=== PATIENT | male | born 1990 | race Caucasian/White ===

== ENCOUNTER 2025-01-20 06:20 | Observation (INO) | payer OTHER ==
[2025-01-20] VITALS (13 sets, daily range): BP systolic 133–155; BP diastolic 80–99
[~2025-01-20] VITALS: Ht 167.6 cm; Wt 81.7 kg
[2025-01-20] MEDS ORDERED: Ondansetron HCl 2 MG / ML 2ML Vial IV ONE ×2 (06:35→06:50)
[2025-01-20 06:41] LABS: BASOPHILS ABSOLUTE AUTO 0.12 K/mm3 (0.00-0.23); BASOPHILS PERCENT AUTO 1 % (0-2); EOSINOPHILS ABSOLUTE AUTO 0.12 K/mm3 (0.00-0.68); EOSINOPHILS PERCENT AUTO 1 % (0-6); Hematocrit 44.1 % (37.0-53.0); Hemoglobin 15.2 g/dL (13.5-17.5); IMMATURE GRAN ABSOLUTE AUTO 0.04 K/mm3 (0.00-0.10); IMMATURE GRAN PERCENT AUTO 0 % (0-1); LYMPHOCYTES ABSOLUTE AUTO 2.57 K/mm3 (0.84-5.20); LYMPHOCYTES PERCENT AUTO 19 % (21-46); MONOCYTES ABSOLUTE AUTO 0.82 K/mm3 (0.16-1.47); MONOCYTES PERCENT AUTO 6 % (4-13); Mean Corpuscular HGB Conc 34.5 g/dL (31.5-36.5); Mean Corpuscular Volume 97 fL (80-100); NEUTROPHILS ABSOLUTE AUTO 9.84 K/mm3 (1.96-9.15); NEUTROPHILS PERCENT AUTO 73 % (41-73); NRBC ABSOLUTE 0.00 K/mm3 (0.00-0.02); NRBC Auto 0.0 /100 WBC (0.0-0.2); Platelet Count 327 K/mm3 (150-400); RDW Coefficient Variation 13.1 % (11.7-14.2); RDW Standard Deviation 47.2 fL (35.1-46.3)
[2025-01-20] MEDS ORDERED: Morphine Sulfate 4 MG/1 ML Injection IV ONE ×2 (06:50→08:05)
[2025-01-20 06:57] LABS: Alanine Aminotransfer (ALT/SGP 50.0 U/L (12-78); Albumin, Blood 3.8 g/dL (3.4-5.0); Albumin/Globulin Ratio 1.1 (0.8-1.8); Anion Gap 10.0 mmol/L (3-11); Aspartate Aminotrans (AST/SGOT 23.0 U/L (12-37); Bilirubin, Total 0.3 mg/dL (0.1-1.0); Blood Urea Nitrogen 15.0 mg/dL (8-24); CO2, Blood 24.0 mmol/L (21-32); Calcium, Blood 8.9 mg/dL (8.5-10.1); Chloride, Blood 106.0 mmol/L (98-108); Creatinine, Blood 0.98 mg/dL (0.60-1.20); Globulin, Blood 3.5 g/dL (2.2-4.0); Glucose, Blood 180.0 mg/dL (70-99); Potassium, Blood 3.8 mmol/L (3.5-5.5); Sodium, Blood 136.0 mmol/L (136-145); Total Protein, Blood 7.3 g/dL (6.4-8.2)
[2025-01-20] MEDS ORDERED: Prochlorperazine Edisylate 10 mg Vial IV ONE (08:05)
[2025-01-20] MEDS ORDERED: Ampicillin Sod/Sulbactam Sod 3 GM in NS 100 ML IV SCH ×2 (10:15→10:30)
[2025-01-20] MEDS ORDERED: FLU VACC TS2025-26(6MOS UP)/PF 45 MCG/0.5 ML SYRINGE IM SCH (10:15)
[2025-01-20] MEDS ORDERED: Bupivacaine 0.5% HCl 5 MG/ML 30MLVIAL ONE (10:37)
[2025-01-20] MEDS ORDERED: HYDROmorphone HCl/Pf 1MG SYR IV PRN (10:40)
[2025-01-20] MEDS ORDERED: FentaNYL Citrate 50 MCG/ML 2 ML Injection IV PRN ×3 (10:40→10:45)
[2025-01-20] MEDS ORDERED: Ondansetron HCl 2 MG / ML 2ML Vial IV PRN (10:40)
[2025-01-20] MEDS ORDERED: Metoclopramide HCl 5MG / ML 2ML Vial IV PRN (10:40)
[2025-01-20] MEDS ORDERED: Midazolam HCl 1MG / ML 2ML Vial IV PRN (10:40)
--- NOTE | 2025-01-20 10:47 | NUR ---
PT BROUGHT TO [facility]IA [facility] FROM ER FOR LAP. DIMITRY. Pre-Op teaching done. Pt verbalizes understanding. Patient confirms NPO status and agrees with scheduled surgery. History, Chart, Medications and Allergies reviewed before start of procedure.
[2025-01-20] MEDS ORDERED: FentaNYL Citrate 50 MCG/ML 2 ML Injection ONE (11:02)
[2025-01-20] MEDS ORDERED: Sugammadex Sodium 200 MG/2ML SDV (100 MG/ML) ONE (11:02)
[2025-01-20] MEDS ORDERED: Ondansetron HCl 2 MG / ML 2ML Vial ONE (11:02)
[2025-01-20] MEDS ORDERED: Rocuronium Bromide 10 MG/ML 5ML Injection IV ONE ×2 (11:02→11:27)
[2025-01-20] MEDS ORDERED: Dexamethasone Sod Phos 10 MG/ML 1ML VIAL ONE (11:02)
[2025-01-20] MEDS ORDERED: Ketorolac Tromethamine 30mg Vial ONE (11:03)
[2025-01-20] MEDS ORDERED: HYDROmorphone HCl/Pf 1MG SYR ONE (11:10)
[2025-01-20] MEDS ORDERED: HYDROcodone 5-APAP 325 TAB PO PRN (14:20)
[2025-01-20] MEDS ORDERED: HYDR1TAB94 PO (15:41)
--- NOTE | 2025-01-20 15:53 | NUR ---
DISCHARGE PT EDUCATED ON AND RECEIVED PRINTED DISCHARGE INSTRUCTIONS AND VERBALIZED AN UNDERSTANDING. MEDS ELECTRONICALLY SENT TO PHARMACY BY DR. BRAND. IV DC'D. PT LEFT WITH ALL PERSONAL BELONGINGS AND MOM TO DRIVE PT HOME.
--- NOTE | 2025-01-20 16:39 | NUR ---
DISCHARGE: PT HAS AMBULATED, VOIDED, PAIN IS MANAGED AND SURGICAL SITES WNL. PT SAYS HE WOULD LIKE TO DC. DR. BRAND NOTIFIED. SEE DC ORDER. MILES VARGAS RN WENT OVER INSTRUCTIONS AND PT LEFT UNIT AROUND [id number]
== END 2025-01-20 15:54 | disposition home or self-care (01) ==
LOC: ER 06:20 → SURS 06:21
PROVIDERS: Emergency Medicine; ADMIT Surgery
PROC: 0FT44ZZ Resection of Gallbladder, Percutaneous Endoscopic Approach (ICD-10-PCS; principal; 2025-01-20 10:30)
PROC: BF03YZZ Plain Radiography of Gallbladder and Bile Ducts using Other Contrast (ICD-10-PCS; principal; 2025-01-20 10:30)
DX: K80.12 Calculus of gallbladder with acute and chronic cholecystitis without obstruction (principal); K42.9 Umbilical hernia without obstruction or gangrene; Z87.891 Personal history of nicotine dependence
CPT/HCPCS: 71045; 71275; 74175; 74300; 80053; 83690; 84484; 85025; 85379; 88304; 93005; 93010; 96374; 96375; 96376; 99285-25; C1729; C1894; J0295; J0780; J1100; J1171; J1885; J2270; J2405; J2704; J3010; J7120; Q9967